=== PATIENT | female | born 1935 | race Hispanic/Latino ===

== ENCOUNTER 2018-05-11 18:05 | Observation (INO) | payer OTHER ==
[~2018-05-11] VITALS: Ht 149.9 cm; Wt 67.1 kg
[~2018-05-11 18:05] MED LIST: ADV250 IH; CYCL5TAB PO; NAPR250T4 PO; PRED20TA3 PO
[2018-05-11] MEDS ORDERED: ONDANSETRON ODT 4 MG TAB ONE (18:38)
[2018-05-11 18:58] LABS: BASOPHILS % (AUTO) 0.4 % (0.0-5.0); EOSINOPHILS % (AUTO) 1.7 % (0.0-8.0); HEMATOCRIT 33.5 % (36-48); LYMPHOCYTES % (AUTO) 12.5 % (21.0-51.0); MEAN CORPUSCULAR HEMOGLOBIN 28.9 pg (27.0-33.0); MEAN CORPUSCULAR HGB CONC 33.9 g/dL (32.0-36.0); MEAN CORPUSCULAR VOLUME 85.3 fL (79-99); MONOCYTES % (AUTO) 6.8 % (3.0-13.0); NEUTROPHILS % (AUTO) 78.6 % (40.0-77.0); PLATELET COUNT (AUTO) 186 K/uL (130-400); RED BLOOD CELL COUNT(AUTO) 3.93 MIL/uL (4.00-5.50); RED CELL DISTRIBUTION WIDTH 13.7 % (11.0-15.5); WHITE BLOOD COUNT (AUTO) 6.9 K/uL (4.8-10.8)
[2018-05-11 19:09] LABS: CREATININE 0.6 mg/dL (0.5-1.5)
[2018-05-11 19:49] LABS: APPEARANCE,URINE CLOUDY (CLEAR); BILIRUBIN,URINE NEGATIVE (NEGATIVE); COLOR,URINE YELLOW (YELLOW); GLUCOSE, URINE (UA) NEGATIVE (NEGATIVE); KETONES,URINE 5 mg/dL (NEGATIVE); LEUKOCYTE ESTERASE ,URINE LARGE (NEGATIVE); NITRATE,URINE POSITIVE (NEGATIVE); OCCULT BLOOD,URINE MODERATE (NEGATIVE); PROTEIN,URINE NEGATIVE (NEGATIVE); UROBILINOGEN,URINE 0.2 mg/dL (0.2-1.0)
[2018-05-11 20:04] LABS: BACTERIA,URINE Few /HPF (None Seen); RBC,URINE None Seen /HPF (0-1); SQUAMOUS EPITHELIAL CELL,UR None Seen /HPF (0-2); WBC,URINE 51-100 /HPF (0-1)
[2018-05-11] MEDS ORDERED: CEFTRIAXONE SODIUM 1 GM ONE (20:25)
--- NOTE | 2018-05-12 01:10 | NUR ---
ADMIT NOTE ADMIT PATIENT TO ROOM 409 VIA STRETCHER FROM ER. PATIENT AWAKE , ALERT, [facility], [place] , NO SOB, NO C/O PAIN AT THIS TIME, RIGHT FOREARM 22 WITH IVF INFUSING WELL, PATIENTS FAMILY MEMBER AT BEDSIDE, TEACH PLAN OF CARE AND EXPECTED OUTCOME, BOTH VERBALIZE UNDERSTANDING VIA TEACH BACK
[2018-05-12 01:43] VITALS: BP 155/73
[2018-05-12] MEDS ORDERED: SODIUM CHLORIDE 0.9% 1000ML 1,000 ML IV SCH (04:00)
[2018-05-12 04:49] LABS: HEMATOCRIT 31.1 % (36-48); MEAN CORPUSCULAR HEMOGLOBIN 29.6 pg (27.0-33.0); MEAN CORPUSCULAR HGB CONC 34.6 g/dL (32.0-36.0); MEAN CORPUSCULAR VOLUME 85.5 fL (79-99); NUCLEATED RED BLOOD CELLS 0.1 % (0.0-0.19); PLATELET COUNT (AUTO) 140 K/uL (130-400); RED BLOOD CELL COUNT(AUTO) 3.63 MIL/uL (4.00-5.50); RED CELL DISTRIBUTION WIDTH 13.7 % (11.0-15.5); WHITE BLOOD COUNT (AUTO) 4.5 K/uL (4.8-10.8)
[2018-05-12 04:57] LABS: BAND NEUTROPHILS % (MANUAL) 2 % (0-2); EOSINOPHILS % (MANUAL) 4 % (1-6); LYMPHOCYTES % (MANUAL) 16 % (22-44); MAN.DIFF COMMENT-IMPRESSION MANUAL DIFFERENTIAL; MONOCYTES % (MANUAL) 4 % (2-9); PLATELET MORPHOLOGY COMMENT ADEQUATE; SEGMENTED NEUTROPHILS % 74 % (40-70)
[2018-05-12 04:59] LABS: ALBUMIN 2.9 g/dL (3.5-5.0); BILIRUBIN,TOTAL 0.3 mg/dL (0.2-1.0); CREATININE 0.5 mg/dL (0.5-1.5); POTASSIUM 3.7 mmol/L (3.5-5.1); TOTAL PROTEIN, SERUM 6.6 g/dL (6.0-8.3)
[2018-05-12] MEDS ORDERED: CEFTRIAXONE SODIUM 1 GM IVP SCH ×2 (06:00→20:00)
[2018-05-12 08:01] VITALS: BP 141/84
[2018-05-12] MEDS ORDERED: PANTOPRAZOLE SODIUM 40 MG TABLET.DR PO SCH (09:00)
[2018-05-12 11:31] VITALS: BP 161/85
[2018-05-12] MEDS ORDERED: METOCLOPRAMIDE 10 MG/2 ML VIAL IVP SCH (12:45)
--- NOTE | 2018-05-12 13:51 | NUR ---
Nutrition Intervention: Nutrition consult due to Hyponatremia, poor appetite. Pt. admitted with Dx of Hyponatremia. Pt. on Regular diet. Pt. reports eating <50% of her meals. Spoke with pt. regarding nutritional / protein supplementation but pt. refused to try. Pt. states willing to try 6 small meals daily. Labs reviewed(Alb 2.9; Na 130-improving). LBM: 05/11/18. SR-20, loose. BMI: 29.9, overweight. Recommendations: 1) Rec. 6 small meals daily. 2) Continue to monitor pt's nutritional status. 3) Consult RD if additional nutrition concerns arise. Addendum: 05/12/18 at [address] Amended: Links added.
--- NOTE | 2018-05-12 17:35 | NUR ---
Discharge teaching completed in the room with pt and family at the side. Emphasis on dx (Dehydration and hypokalemia), s/s to monitor for, when to seek emergency care vs dial 911. Pt has follow up appt with Dr. Edwards for Tuesday @ 10:00 am. Pt is to continue on all her previous home medications, son in the room says he was not able to bring them in to be reconciled here. Pt instructed to continue her pervious regimen. New rx for cipro and reglan called in to pt's preferred [facility] - spoke with pharmacist Roxanne. Discussed purpose, route, frequency, and duration of treatment, as well as side effects and adverse effects. Pt was encouraged to complete entire course of abx exactly as ordered. PIV removed, tip intact. Dressed with sterile 2x2 and band aid after hemostasis. [place] wheel[place] front lobby [place] [facility] [place] via [place]. Pt in stable condition at time of discharge. Pt accompanied by family.
== END 2018-05-12 17:37 | disposition home or self-care (01) ==
LOC: EDH 18:05 → EDHIP 21:25 → 4BH 05-12 01:20
PROVIDERS: ADMIT Family Medicine; ATTEND Family Medicine
DX: E86.0 Dehydration (principal); I10 Essential (primary) hypertension; Z87.440 Personal history of urinary (tract) infections; E87.1 Hypo-osmolality and hyponatremia; E78.5 Hyperlipidemia, unspecified; Z79.899 Other long term (current) drug therapy
CPT/HCPCS: 36415 ×2; 80048; 80053; 81001; 85025 ×2; 87040; 87077 ×2; 87088; 87186 ×2; 93005; 96361; 96374; 99291; G0378 ×20; J0696; J2765

== ENCOUNTER 2022-03-29 11:20 | Emergency (ER) | payer OTHER ==
[~2022-03-29] VITALS: Ht 152.4 cm; Wt 59.9 kg
[2022-03-29 11:33] VITALS: BP 134/65
== END 2022-03-29 14:45 | disposition left against medical advice (07) ==
LOC: EDH 11:20
DX: M25.552 Pain in left hip (principal); Z53.21 Procedure and treatment not carried out due to patient leaving prior to being seen by health care provider
CPT/HCPCS: 73502

== ENCOUNTER → 2022-04-05 | Outpatient (CLI) | payer OTHER | END | disposition home or self-care (01) | LOC: RAH 10:07 | PROVIDERS: ATTEND Family Medicine | DX: S32.512A Fracture of superior rim of left pubis, initial encounter for closed fracture (principal); S32.592A Other specified fracture of left pubis, initial encounter for closed fracture; X58.XXXA Exposure to other specified factors, initial encounter; Y93.89 Activity, other specified; Y92.89 Other specified places as the place of occurrence of the external cause; Y99.8 Other external cause status | CPT/HCPCS: 73502 ==